=== PATIENT | male | born 1985 | race Caucasian/White ===

== ENCOUNTER → 2020-02-13 15:27 | Outpatient (CLI) | payer OTHER, SELFPAY ==
[2020-02-13 17:41] LABS: Semen Viscosity Stringy (Normal); WBCs,Semen Negative
[2020-02-13 17:42] LABS: PH,Semen 8.5 (7.3-8.3)
[2020-02-13 17:46] LABS: Motility Quality Good Progression (Mod-Rapid); Sperm Count 76 mil/mm3 (20-160); Sperm Motility 70 % (50-90)
[2020-02-13 17:47] LABS: Sperm Morphology Normal (Normal)
[2020-02-13 19:06] LABS: 3Hr Motility Quality Good Progression (Mod-Rapid); 3Hr Sperm Motility 40 % (50-60)
== END ==
PROVIDERS: PCP Internal Medicine Adolescent Medicine; Visit Provider Nurse Practitioner Obstetrics & Gynecology
DX: Z31.41 Encounter for fertility testing (principal)
CPT/HCPCS: 89320

== ENCOUNTER → 2021-07-26 17:09 | Outpatient (CLI) | payer OTHER, SELFPAY | PROVIDERS: Visit Provider Nurse Practitioner | DX: Z20.822 Contact with and (suspected) exposure to COVID-19 (principal) | CPT/HCPCS: C9803; U0003; U0005 ==